=== PATIENT | female | born 1980 | race Caucasian/White ===

== ENCOUNTER 2016-08-23 08:04 | Inpatient (IN) | payer OTHER ==
[2016-08-23] VITALS (29 sets, daily range): BP systolic 14–164; BP diastolic 72–115
[~2016-08-23] VITALS: Ht 177.8 cm; Wt 77.2 kg
[~2016-08-23 08:04] MED LIST: ACETAMINOPHEN500 M3 PO; BACTRIM DS 8001 TAB PO; DEPO-PROVER150 MG/M1 IM; FOLIC ACID 1MG T1 MG PO; GABAPENTIN 600600 MG PO; GABAPENTIN600 MG PO; LEVAQUIN500 MG PO; METRONIDAZOLE500 M1 PO; OXYCODONE HYDROC5 MG PO; Oxycodone5 MG NG; PANTOPRAZOLE SO40 M1 PO; PHENERGAN25 M3 PO; POTASSIUM CHLO10 ME3 PO; POTASSIUM CHLO20 ME2 PO; PREDNISONE 20MG20 MG PO; PROTONIX40 MG PO; TORADOL10 M2 PO; TRAMADOL50 M1 PO; ZOFRAN4 MG PO
[2016-08-23] MEDS ORDERED: PHENERGAN25 M3 PO (08:13)
[2016-08-23] MEDS ORDERED: TRAMADOL 50MG T50 M1 PO (08:13)
--- NOTE | 2016-08-23 08:51 | Emergency Room Report ---
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 N Clinical Suspician of Infection? N Mental Status: 1 - Regular (Normal Baseline) Sepsis Risk:Possible Sepsis Risk Have you (or family members/close friends) recently traveled outside the [place]? N If Yes, where/when: Have you had exposure to infectious disease within the past month? N TB? Other? Specify: States has been vomiting all week. Has not eaten in the last two days. Had "pressure in my throat" last night then this morning "felt a pop" in her chest and started vomiting bright red blood. No diarrhea. No urinary sx. Menses irregular as on Depo. No report of fever. ALLERGIES Coded Allergies: Penicillins (08/22/16) Home Medications Active Scripts Pantoprazole Sodium (Protonix) 40 MG PO QHS #30 Ref 3 Prov: 07/30/15 ONDANSETRON HCL (Zofran 4MG Tab) 4 MG PO Q6HP PRN NAUSEA AND VOMITING #20 TAB Ref 5 Prov: 07/30/15 Reported Medications Gabapentin (Gabapentin 600MG) 600 MG PO QID POTASSIUM CHL (Potassium Chloride) 40 MEQ PO BID Medroxyprogesterone Acetate (Depo-Provera) 150 MG IM Q3 MONTHS TRAMADOL HCL (Tramadol) 50 MG PO PRN PRN PAIN PROMETHAZINE HCL (Phenergan 25MG Tab (Geq)) 25 MG PO Q6HP PRN N/V #10 History Medical History General CAD? No Angina: No AK: No Hypertension? Yes Hyperlipidemia? Yes CHF? No DVT? No PE? No COPD? No Asthma? No Anemia? No GERD? No Gastric ulcers? No GI Bleed? No Hernia? No Thyroid Problems? No Hypothyroidism? No CVA? No Seizures? No Diabetes? No Insulin Dependent: No Insulin Pump: No Home FSBS? No Renal Insuffiency? No End Stage Renal Disease? No UTI? No Stones? No BPH? No GB Disease: Yes Nephritic Syndrome? No Asplenia? No Hepatitis? Yes Sickle Cell Disease? No Arthritis? No Migraines? Yes Cataracts? No Glaucoma? No MRSA? No HIV? No TB? No Anxiety? No Depression? No Cancer? No More? 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 Gastrointestinal see HPI Physical Exam Vital Signs Vital Signs Date Time Temp Pulse Resp B/P Pulse O2 O2 Flow FiO2 Ox Delivery Rate 08/23 1101 98.0 96 20 178/98 99 08/23 1020 98.0 94 20 189/92 98 08/23 0932 98.1 93 20 138/105 98 08/23 0929 22 08/23 0851 88 20 157/118 95 08/23 0807 97.9 112 20 149/115 99 General Appearance mild distress Eye Exam - bilateral eye normal exam, bilateral eye PERRL Neck normal inspection, full range of motion Respiratory Status Yes: trachea midline, chest symmetrical, non tender chest. No: respiratory distress, tender on palpation, use of accessory muscles, pain on inspiration, pain on expiration, productive cough, non productive cough. Lung Sounds bilateral: normal breath sounds, lungs clear. Cardiovascular normal exam, regular rate/rhythm, no peripheral edema, no JVD, no murmur, no rub Gastrointestinal normal bowel sounds, normal exam, soft, no organomegaly, no guarding, no rebound Extremities normal range of motion Neurologic alert, normal exam Glascow Coma Scale Glascow Coma Scale Response Value EYE response: 4 Spontaneously 4 MOTOR response: 6 OBEYS 6 VERBAL response: 5 Oriented & Converses 5 Total 15 Skin intact, pallor Medical Decision Making LABS/Meds/Orders Pt receiving controlled substance in ED? Yes Song was queried for this patient? No Reason not queried - emergent pt cond=no time Results/Orders Laboratory Tests 08/23/16 1043: Urine Color MIGUEL, Urine Appearance CLOUDY, Urine pH 6.5, Ur Specific [place] 1.025, Urine Protein 1+ H, Urine Ketones TRACE H, Urine Blood NEGATIVE, Urine Nitrate POSITIVE H, Urine Bilirubin 1+ H, Urine Urobilinogen 4.0, Ur Leukocyte Esterase TRACE H, Urine RBC OCC, Urine WBC 10-20, Ur Squamous Epith Cells 10-20 , Urine Renal Cells OCC, Urine Bacteria 4+, Urine Mucus 2+, Urine Glucose NEGATIVE 08/23/16 0920: MCH 45.8 *H 08/23/16 0920: Sodium 142, Potassium 2.8 *L, Chloride 100, Carbon Dioxide 31, BUN 11, Creatinine 0.5 L, Estimated Creat Clear 178, Estimated GFR (MDRD) 140, Glucose 100, Calcium 8.4 L, Total Bilirubin 2.1 H, AST 85 H, ALT 21, Alkaline Phosphatase 112, Total Protein 6.3 L, Albumin 2.9 L, Globulin 3.4 H, Albumin/ Globulin Ratio 0.9 L, PT 12.0 H, INR 1.12 H, APTT 25.2, WBC 5.6, RBC 1.99 L, Hgb 9.1 L, Hct 27.0 L, MCV 135.8 H, RDW 16.8, Plt Count 247, MPV 9.2, Gran % 75.9, Gran # 4.3, Lymphocytes % 20.4, Monocytes % 3.2, Eosinophils % 0.4, Basophils % 0.1, Lymphocytes # 1.2, Monocytes # 0.2, Eosinophils # 0.0, Basophils # 0.0, PUBS MCHC 33.9, Antibody Screen NEGATIVE, Miscellaneous Test POSITIVE Current Medication Orders Sig/Jan Start time Last Medication Dose Route Stop Time Status Admin Iopamidol 75 ML ONCE ONE 08/23 1115 DC 08/23 IV 08/23 1116 1102 Sodium Chloride 10 ML PRN PRN 08/23 1115 AC 08/23 IV 08/23 1231 1102 Potassium Chloride/ 100 ML ONCE ONE 08/23 1045 AC 08/23 Water IV 08/23 1244 1138 Lactated Ringer's 1,000 ML .Q1H1M 08/23 1000 DC 08/23 IV 08/23 1100 1138 Sodium Chloride 10 ML PRN PRN 08/23 1000 AC IV 08/24 0954 Pantoprazole Sodium 0 .STK-MED ONE 08/23 0928 DC IV Ondansetron HCl 0 .STK-MED ONE 08/23 0927 DC .ROUTE Sodium Chloride 1,000 ML .STK-MED ONE 08/23 0927 DC IV Morphine Sulfate 0 .STK-MED ONE 08/23 09 DC .ROUTE Morphine Sulfate 4 MG ONCE ONE 08/23 0845 DC 08/23 IV 08/23 0846 0929 Ondansetron HCl 4 MG ONCE ONE 08/23 0845 DC 08/23 IV 08/23 0846 0929 Pantoprazole Sodium 40 MG ONCE ONE 08/23 0845 DC 08/23 IV 08/23 0846 0929 Sodium Chloride 10 ML PRN PRN 08/23 0845 AC IV 08/24 0844 Sodium Chloride 1,000 ML .Q4H 08/23 0845 AC 08/23 IV 08/23 1244 0928 Sodium Chloride 10 ML PRN PRN 08/23 0845 AC IV 08/24 0844 Sodium Chloride 10 ML ONCE ONE 08/23 0845 DC 08/23 IV 08/23 0846 1139 Orders Procedure Date/time Status DIET-NOTHING BY MOUTH 08/23 L Complete Decision to admit 08/23 1121 Active CULTURE, URINE 08/[address] CHEST SCAN REQ 08/[address] ABD REQUEST 08/23 1012 Complete ELECTROCARDIOGRAM REQUEST 08/23 0955 Active IV SALINE LOCK 08/23 0846 Active URINALYSIS/COMPLETE 08/23 0846 Complete TYPE AND SCREEN 08/23 0846 Complete PARTIAL THROMBOPLASTIN TIME 08/23 0846 Complete PROTHROMBIN TIME 08/23 0846 Complete URINE 08/23 0846 Complete CBC WITH AUTO DIFF 08/23 0846 Complete CHEM 12 PROFILE 08/23 0846 Complete 12 LEAD EKG-BESSON (INITIAL) 08/[address] CHEST W/ CONTRAST 08/[address] ABD & PELVIS W/ CONTRAST 08/23 UNK Active CM/EKG CM/EKG EKG rate (79), NSR, rhythm, no evid. of ischemic chgs, no ectopy, normal QRS, normal VA, normal EKG (T w flattening/hypokalemia), somewhat prolonged QTc 488 XRAY/CT/US XRAY/CT/US XR interpretation by reviewed by me, discussed w/radiologist Xray Results normal/NAD, no fracture seen, no infiltrates, normal heart size, normal lung inflation frank (no air noted/no tear/no PTX) CT abdomen, chest CT interpretation by reviewed by me, discussed w/radiologist Time results known: 1150 CT Results colonic thickening; no free air; enlarged liver per d/w Dr. Wells Consult MD Physician Consult 1 Consult/PCP Dr. Schmitt requesting surgery consult Time Called 1008 Reason Pt. Condition, Admission Physician Consult 2 Consult/PCP Dr. Granados requesting KCl IV; plans EGD later in day. Ok to admit to PCP. Time Called 1014 Reason Pt. Condition, Surgical eval/care Physician Consult 3 Time Called [address] Schmitt paged regarding definitive admission with consult to surgery/Dr. Granados now done. Still awaiting test result and CT scan. Departure Departure Time of Disposition 1122 Disposition Still a Patient Clinical Impression Primary Impression: Hematemesis Qualifiers: Nausea presence: with nausea Qualified Code: K92.0 - Hematemesis Secondary Impressions: Hypokalemia Condition STABLE Referrals Michel HUNT,Al Welch (Family) ED Critical Care Critical Care Yes Time spent < 30 min Vital system(s) involved: Circulatory Failure (hypokalemia; UGI bleeding) I was present at bedside for Coordinating pt's care, Interpreting EKGs/Strips , During my initial exam, Reviewing lab results, Reviewing old records, Discussing pt condition, For re-examinations, Examining radiographs, multiple consults at 1150
[2016-08-23 09:42] LABS: LYMPH # 1.2 K/mm3 (0.7-4.5); LYMPH % 20.4 % (10-50.0)
[2016-08-23 09:48] LABS: HEMOGLOBIN 9.1 g/dL (12.2-16.2)
--- NOTE | 2016-08-23 10:08 | RADIOLOGY REPORT PS360 ---
CHEST-PORTABLE ORDERING PHYSICIAN : Amelie Alberts MD PATIENT AGE: 36 years GENDER: Female INDICATION: hematemesis Chest pain. [place] something pop TECHNIQUE: AP portable upright chest COMPARISON: April 24, 2016 chest x-ray FINDINGS Lungs clear. No active disease. Heart johnny and mediastinal structures satisfactory. Heart upper normal in size. Normal pulmonary vascularity. No obvious rib lesions or fractures. No pneumothorax. No mediastinal air evident on this limited AP portable chest. No pleural effusion. IMPRESSION: Nothing definite acute No active disease in the chest.
[2016-08-23 10:09] LABS: ABO BLOOD TYPE A; RH BLOOD TYPE POSITIVE
[2016-08-23 11:05] LABS: URINE BLOOD NEGATIVE (NEG)
[2016-08-23 11:07] LABS: URINE BILIRUBIN - DIPSTICK 1+ (NEG); URINE RENAL CELLS OCC #/HPF
--- NOTE | 2016-08-23 11:57 | RADIOLOGY REPORT PS360 ---
CT ABD PELVIS W/ CONTRAST ORDERING PHYSICIAN : Amelie Alberts MD PATIENT AGE: 36 years GENDER: Female INDICATION: HEMATEMESISSevere throat esophageal chest pain down to abdomen. TECHNIQUE: Helical CT scanning performed the abdomen following 75 cc Isovue-370. COMPARISON: April 25, 2016 CT abdomen FINDINGS GI TRACT: Large bowel. . Diffuse fatty wall thickening throughout the colon most evident at the right and transverse colon. Nonspecific observation but can be seen with chronic inflammation, inflammatory bowel disease. This appearance has shown progression since April 25, 2016 CT abdomen. Is also suggestion of very subtle hazy appearance in pericolic fat surrounding the colon particularly at the right colon and possibly left colon. Cannot exclude a underlying mild diffuse colitis currently.. Terminal ileum. Generous caliber with air-fluid level but overall appears satisfactory with no wall thickening no inflammation at terminal ileum. Also Appendix is normal. Small bowel normal caliber with a few small air-fluid levels. Moderate fluid appears normal to upper normal. PELVIS. Uterus modest/ normal size with no adnexal masses. Urinary bladder diffuse wall thickening may reflect its contracted state but cannot exclude interstitial suspect cystitis. Warrants correlation with urinalysis. Liver. enlarged liver. On left lobe extends far lateral anterior to the spleen. The right lobe measures 24 cm length. Diffuse fatty changes in liver. Gallbladder surgically removed. No biliary ductal dilatation. Pancreas appears satisfactory. Adrenals unremarkable. Kidneys satisfactory. No free fluid. No free air in abdomen. Spleen appears normal size. Portal vein upper normal diameter measuring ~14 mm IMPRESSION 1. Hepatomegaly. Diffuse fatty changes liver Portal vein upper normal size measuring measuring just over [address] Spleen normal size 2. Cholecystectomy. No biliary ductal dilatation. 3. Fat density wall thickening throughout the entire colon most evident at right & transverse colon. Subtle pericolic inflammation right & left colon. Note comments in text. Could reflect chronic inflammatory bowel process, however appearance suspect for possible mild colitis currently.- correlation clinically required 4.. Diffuse wall thickening urinary bladder also noted. In part reflect contracted state but suspect for cystitis
--- NOTE | 2016-08-23 13:47 | CONSULT NOTE ---
Standard Demographics Patient Demo Date of Consultation: 08/23/16 Referring Provider: Francis Schmitt MD Reason for Consultation: hematemesis PRIMARY DIAGNOSIS: GI Bleed Allergies: Coded Allergies: Penicillins (08/22/16) History of Present Illness Chief Complaint: Hematemesis History of Present Illness: This is a 36-year-old female seen in consultation from Dr. Schmitt for evaluation regarding hematemesis. She has had fairly persistent nausea and intermittent emesis over the past "week or so". Earlier today she felt a "pop" during an episode of emesis and this was quickly followed by hematemesis. In general she just "feels bad". No melena as of yet. No loss of consciousness. Past Medical History Reports: hypertension. Surgical History Previous Surgery?Y UMBILICAL HERNIA ORIF LEFT ARM LAP CONSUELO D & C BIOPSY 1999 Allergies Coded Allergies: Penicillins (08/22/16) Medications: Active Scripts Pantoprazole Sodium (Protonix) 40 MG PO QHS #30 Ref 3 Prov: 07/30/15 ONDANSETRON HCL (Zofran 4MG Tab) 4 MG PO Q6HP PRN NAUSEA AND VOMITING #20 TAB Ref 5 Prov: 07/30/15 Reported Medications Gabapentin (Gabapentin 600MG) 600 MG PO QID POTASSIUM CHL (Potassium Chloride) 40 MEQ PO BID Medroxyprogesterone Acetate (Depo-Provera) 150 MG IM Q3 MONTHS TRAMADOL HCL (Tramadol) 50 MG PO PRN PRN PAIN PROMETHAZINE HCL (Phenergan 25MG Tab (Geq)) 25 MG PO Q6HP PRN N/V #10 Family history Postive for: HTN. Smoking Hx Tobacco: No Smoker: Former Smoker Type: Cigarettes Packs/day: N/A Are you/the child exposed to second-hand smoke: No Alcohol Alcohol: Yes How much do you drink occasional- few times month For how long 3 years When was your last drink new yrs Hx of Drug Use Drug Use? No Review of Systems Constitutional No: chills. Skin No: bruising. Immune/allergy No: anaphalaxis. Eyes No: discharge. ENT No: nose bleed. Respiratory No: pneumonia. Cardiovascular No: palpitations. GI Positive for: hematemeis, nausea, vomitting. No: hematochezia, melena. (female) No: hematuria. Musculoskeletal Positive for: myalgias. Heme No: petechia. Endocrine No: polydipsia. Neurological No: change in LOC. Psychiatric No: anxious. Physical Exam VS/I&O Vital Signs Date Time Temp Pulse Resp B/P Pulse O2 O2 Flow FiO2 Ox Delivery Rate 08/23 1341 20 08/23 1253 80 08/23 1253 97.6 80 24 164/88 08/23 1253 100 ROOM AIR 08/23 1253 97.6 80 24 164/88 100 ROOM AIR 08/23 1235 89 20 145/88 99 08/23 1214 101 20 138/88 99 08/23 1143 98.6 92 20 174/88 99 08/23 1138 20 08/23 1101 98.0 96 20 178/98 99 08/23 1020 98.0 94 20 189/92 98 08/23 0932 98.1 93 20 138/105 98 08/23 0929 22 08/23 0851 88 20 157/118 95 08/23 0807 97.9 112 20 149/115 99 Exam General appearance no acute distress Neck full ROM Respiratory no distress Cardiovascular regular rate and rhythm Abdomen soft Plan Plan: Impression: Hematemesis/upper gastrointestinal bleed Plan: Esophagogastroduodenoscopy-I have discussed the risks and benefits and she agrees to proceed at 1346
--- NOTE | 2016-08-23 14:29 | Operative Note ---
Surgeon/Diagnoses Surgeon/Room Attendants(s) Date of procedure: 08/23/16 Surgeon: MD Kane Kc Diagnoses Pre-op diagnosis: Hematemesis Post-op diagnosis Hematemesis Esophagitis Mucosal tears ("Sanjuana-Altman") of mid and distal esophagus Distal gastritis Shallow antral ulceration with no active bleeding Procedure Procedure Procedure: Esophagogastroduodenoscopy with biopsy Indications: AKBAR HUNTER is a 36 year-old Female with a history of recent nausea and vomiting followed by an episode of hematemesis and a "pop sensation" earlier today. Findings: Fairly significant patchy erosive esophagitis distally Shallow linear ulcerations/tears ("Sanjuana-Altman") of mid and distal esophagus No active bleeding No blood in gastric lumen Distal gastritis Shallow antral ulceration with no active bleeding Procedure Description: After informed consent was obtained, the patient was taken to the endoscopy suite. Monitored anesthesia care ensued after she was transferred to the LEFT lateral decubitus position. The gastroscope was advanced. Erosive inflammatory changes were noted of the mid and distal esophagus. Shallow linear ulcerations/ tears of the mucosa were noted of the mid and distal esophagus. No active bleeding was seen. The stomach was entered. No blood was noted within the stomach. Inflammation distally was noted in this fairly small shallow ulceration of the antrum was noted. No active bleeding was seen. Biopsies were obtained. The pylorus was intubated. The duodenal mucosa appeared relatively normal. The gastroscope was carefully removed and the patient was transferred to recovery. EBL (ml): 1 Anesthesia: Monitored anesthesia care Complications: No immediate Specimens: Biopsy of gastric antrum (ulcer) Disposition Disposition: Stable to recovery from where she will be transferred back to the floor. at 0256
[2016-08-23 15:42] LABS: LYMPH # 1.9 K/mm3 (0.7-4.5); LYMPH % 35.7 % (10-50.0)
[2016-08-23 16:27] LABS: HEMOGLOBIN 7.2 g/dL (12.2-16.2)
--- NOTE | 2016-08-23 19:06 | RADIOLOGY REPORT PS360 ---
CT CHEST W/ CONTRAST ORDERING PHYSICIAN : Amelie Alberts MD PATIENT AGE: 36 years GENDER: Female INDICATION: HEMATEMESIS Severe throat and esophagus chest pain down into abdomen. TECHNIQUE: Helical CT scanning performed through the chest following 75 cc Isovue-370. Sagittal coronal reconstruction CT workstation. COMPARISON: None FINDINGS Helical CT scanning performed the chest. Lungs are clear with no focal pneumonia. No pleural effusion. Mediastinum. Calcified right paratracheal nodes reflecting old granulomatous disease. Node measuring up to nodes measuring less than 1 cm generous azygos vein. Esophagus wall appears upper normal in thickness throughout sagittal image 47; & particularly at its midportion,. Clinical correlation required. Possible esophagitis. Cannot exclude esophageal injury. No evident nor obvious esophageal varices. A slightly generous azygos vein is noted No air nor fluid is seen adjacent to the esophagus , to further support esophageal tear. However there are 2 small dot of air seen superior right mediastinum. The first seen on Axial image 27 right superior/anterior mediastinum which actually suspect more likely resides within a vein, as seen on coronal image 28. There is a 2nd smaller.Of air at the posterior aspect right sternoclavicular joint also likely within veins. Even smaller tiny dot of air within the anterior margin brachiocephalic vein on axial image 25. Heart normal upper normal size no pericardial effusion. No pleural effusion. The thyroid is upper normal in size at the base the neck. -----IMPRESSION: 1. Lungs clear no active disease . 2.. There are 2 Small dots of air anterior right superior mediastinum. Curious but most likely benign feature-Most likely air within the small vein . But may require follow-up if symptoms progress. No air or fluid seen otherwise about the esophagus to suggest esophageal rupture or tear. 3. Wall of esophagus appears upper normal thickness, particularly in its midportion. appearance May reflect esophagitis.. . Cannot exclude area of esophageal injury. Suggest EGD [facility] report , subsequent to my review and discussion with Dr. Alberts, had similar conclusion.
[2016-08-23 19:16] LABS: ANTIHUMAN GLOB CROSSMATCH COMPAT
[2016-08-23 19:16] LABS: ABO BLOOD TYPE A; ANTIHUMAN GLOB CROSSMATCH COMPAT; RH BLOOD TYPE POSITIVE
[2016-08-24] VITALS (9 sets, daily range): BP systolic 127–147; BP diastolic 89–111
[2016-08-24 05:57] LABS: LYMPH # 1.8 K/mm3 (0.7-4.5); LYMPH % 36.6 % (10-50.0)
--- NOTE | 2016-08-24 08:38 | HISTORY AND PHYSICAL REPORT ---
Demographics: Admit date: 08/23/16 Chief complaint: vomiting PRIMARY DIAGNOSIS: GI Bleed Allergies: Coded Allergies: Penicillins (08/22/16) History of present illness: History of present illness: this wf with vomiting and dev sev chest pain and had hematemesis and with progressive pain and weakness presented to the ed with upper gi bleed- pt admitted and will have surg consult for possible egd Past medical history: Family HX Family Hx Insignificant Yes Immunization HX DT/Tetanus 1-4 Years Ago Flu 2014-16FSN Pneumonia Refuses TB Test in last year Yes Result Negative General CAD? No Angina: No [place]: No Hypertension? Yes Hyperlipidemia? Yes CHF? No DVT? No PE? No COPD? No Asthma? No Anemia? No GERD? No Gastric ulcers? No GI Bleed? No Hernia? No Thyroid Problems? No Hypothyroidism? No CVA? No Seizures? No Diabetes? No Insulin Dependent: No Insulin Pump: No Home FSBS? No Renal Insuffiency? No UTI? No Stones? No BPH? No GB Disease: Yes Nephritic Syndrome? No Asplenia? No Hepatitis? Yes Sickle Cell Disease? No Arthritis? No Migraines? Yes Cataracts? No Glaucoma? No MRSA? No HIV? No TB? No Anxiety? No Depression? No Cancer? No More? No Additional hx: NEUROPATHY Past Surgical HX Previous Surgery?Y UMBILICAL HERNIA ORIF LEFT ARM LAP CONSUELO D & C BIOPSY 1999 Current home meds: Active Scripts Pantoprazole Sodium (Protonix) 40 MG PO QHS #30 Ref 3 Prov: 07/30/15 ONDANSETRON HCL (Zofran 4MG Tab) 4 MG PO Q6HP PRN NAUSEA AND VOMITING #20 TAB Ref 5 Prov: 07/30/15 Reported Medications Gabapentin (Gabapentin 600MG) 600 MG PO QID POTASSIUM CHL (Potassium Chloride) 40 MEQ PO BID Medroxyprogesterone Acetate (Depo-Provera) 150 MG IM Q3 MONTHS TRAMADOL HCL (Tramadol) 50 MG PO PRN PRN PAIN PROMETHAZINE HCL (Phenergan 25MG Tab (Geq)) 25 MG PO Q6HP PRN N/V #10 Social Hx: Smoking HX Tobacco Yes Type CIGARETTES Packs/day N/A Are you/the child exposed to second-hand smoke: No Alcohol Alcohol: Yes How much do you drink occasional- few times month For how long 3 years When was your last drink new yrs Hx of Drug Use Drug Use? No Patien't marital status is Patient's support system is good Review of systems: Constitutional No: fever. Eyes No: drainage. Ears, Nose, Mouth, Throat No ear discharge, No epistaxis, No missing teeth Respiratory No: cough, shortness of breath, wheezing. Cardiovascular No chest pain, No palpitations, No syncope Gastrointestinal/Abdominal see HPI, abdominal pain, No diarrhea, poor appetite, poor fluid intake, vomiting Genitourinary No: dysuria, frequency, hesitancy, hematuria. Musculoskeletal No: back pain, joint pain, joint swelling, neck pain. Skin No: rash. Neurological Yes: see HPI, weakness. No: headache, numbness, parasthesia. Psychiatric No: depressed. Exam: Lab data for last 24 hours: Laboratory Tests 08/24/16 0530: Sodium 141, Potassium 2.6 *L, Chloride 104, Carbon Dioxide 28, BUN 9, Creatinine 0.4 L, Estimated Creat Clear 223 H, Estimated GFR (MDRD) 181, Glucose 80, Calcium 8.1 L, WBC 4.8, RBC 2.50 L, Hgb 10.0 L, Hct 29.8 L, MCV 119.2 H, RDW 25.4 *H, Plt Count 161, MPV 9.5, Gran % 58.5, Gran # 2.8, Lymphocytes % 36.6 , Monocytes % 3.9, Eosinophils % 0.8, Basophils % 0.3, Lymphocytes # 1.8, Monocytes # 0.2, Eosinophils # 0.0, Basophils # 0.0, PUBS MCHC 33.2, MCH 39.6 H 08/23/16 2243: Misc Test Units BLOOD UNIT RELEASE 08/23/16 2035: Misc Test Units BLOOD UNIT RELEASE 08/23/16 1650: Antibody Screen NEGATIVE, Miscellaneous Test POSITIVE 08/23/16 1535: WBC 5.3, RBC 1.61 L, Hgb 7.2 *L, Hct 22.1 *L, MCV 137.3 H, RDW 16.7, Plt Count 175, MPV 9.4, Gran % 60.1, Gran # 3.2, Lymphocytes % 35.7, Monocytes % 3.3, Eosinophils % 0.8, Basophils % 0.1, Lymphocytes # 1.9, Monocytes # 0.2, Eosinophils # 0.0, Basophils # 0.0, PUBS MCHC 32.4, MCH 44.5 *H 08/23/16 1330: Sodium 142, Potassium 3.1 L, Chloride 101, Carbon Dioxide 30, BUN 9, Creatinine 0.4 L, Estimated Creat Clear 223 H, Estimated GFR (MDRD) 181, Glucose 85, Calcium 8.1 L 08/23/16 1043: Urine Color MIGUEL, Urine Appearance CLOUDY, Urine pH 6.5, Ur Specific [place] 1.025, Urine Protein 1+ H, Urine Ketones TRACE H, Urine Blood NEGATIVE, Urine Nitrate POSITIVE H, Urine Bilirubin 1+ H, Urine Urobilinogen 4.0, Ur Leukocyte Esterase TRACE H, Urine RBC OCC, Urine WBC 10-20, Ur Squamous Epith Cells 10-20 , Urine Renal Cells OCC, Urine Bacteria 4+, Urine Mucus 2+, Urine Glucose NEGATIVE 08/23/16 0920: MCH 45.8 *H 08/23/16 0920: Sodium 142, Potassium 2.8 *L, Chloride 100, Carbon Dioxide 31, BUN 11, Creatinine 0.5 L, Estimated Creat Clear 178, Estimated GFR (MDRD) 140, Glucose 100, Calcium 8.4 L, Total Bilirubin 2.1 H, AST 85 H, ALT 21, Alkaline Phosphatase 112, Total Protein 6.3 L, Albumin 2.9 L, Globulin 3.4 H, Albumin/ Globulin Ratio 0.9 L, PT 12.0 H, INR 1.12 H, APTT 25.2, WBC 5.6, RBC 1.99 L, Hgb 9.1 L, Hct 27.0 L, MCV 135.8 H, RDW 16.8, Plt Count 247, MPV 9.2, Gran % 75.9, Gran # 4.3, Lymphocytes % 20.4, Monocytes % 3.2, Eosinophils % 0.4, Basophils % 0.1, Lymphocytes # 1.2, Monocytes # 0.2, Eosinophils # 0.0, Basophils # 0.0, PUBS MCHC 33.9, Antibody Screen NEGATIVE, Miscellaneous Test POSITIVE Microbiology 08/23 1042 URINE CC: Urine Culture - RECD Admission vital signs: 1ST Vital Signs Result Date Time Pulse Ox 99 08/23 0807 B/P 149/115 08/23 0807 Temp 97.9 08/23 0807 Pulse 112 08/23 0807 Resp 20 08/23 0807 O2 Delivery ROOM AIR 08/23 1253 Exam General appearance: alert, active Eyes: PERRLA ENT: dry mucous membranes Neck: no JVD Cardiovascular: regular rate & rhythm, no murmur Respiratory: no respiratory distress, diminished breath sounds ABD: soft Genitourinary: no hematuria Extremities: moves all Musculoskeletal: equal muscle strength Skin: dry, intact Neuro: alert, sizer machine II-XII nml as tested Plan: Problem List 1. Hematemesis 2. UGI bleed 3. Hypokalemia 4. HTN (hypertension) Plan: will continue with surg and gi treatment for upper bleed at 0838
--- NOTE | 2016-08-24 11:31 | RADIOLOGY REPORT PS360 ---
CHEST-PORTABLE COMPARISON: Portable upright chest 08/23/2016 HISTORY: Shortness of breath TECHNIQUE: Portable upright chest FINDINGS: This is a slightly poor inspiration however lung cardenas are clear of infiltrate. There is a possible slight interval increase in overall cardiac size from yesterday's film but this could be due to the slightly poor inspiration. Overall vascularity appears normal and is no pleural fluid. IMPRESSION: Slightly poor inspiration, no definite acute chest pathology noted
[2016-08-25 07:00] VITALS: BP 158/107
[2016-08-25 07:58] VITALS: BP 141/102
--- NOTE | 2016-08-25 08:29 | ACUTE CARE PROGRESS NOTE (QUA) ---
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 Hematemesis 2. UGI bleed 3. Hypokalemia 4. HTN (hypertension) Patient condition Improving Plan: continue current care, make medication changes This inpt stay is expected to cross 2 MNs from start of care Yes Comments: slowly doing better at 0860
--- NOTE | 2016-08-25 08:29 | ACUTE CARE PROGRESS NOTE (QUA) ---
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 Hematemesis 2. UGI bleed 3. Hypokalemia 4. HTN (hypertension) Patient condition Improving Plan: continue current care, make medication changes This inpt stay is expected to cross 2 MNs from start of care Yes Comments: slowly doing better at 0888
[2016-08-25 08:34] LABS: HEMOGLOBIN 9.8 g/dL (12.2-16.2); LYMPH # 1.2 K/mm3 (0.7-4.5); LYMPH % 24.8 % (10-50.0)
[2016-08-25 14:38] VITALS: BP 150/105
[2016-08-25 20:05] VITALS: BP 147/110
[2016-08-25 20:12] VITALS: BP 152/104
[2016-08-25 20:25] VITALS: BP 152/104
[2016-08-26] VITALS (30 sets, daily range): BP systolic 129–163; BP diastolic 75–111
--- NOTE | 2016-08-26 09:19 | PHARMACY CLINIC NOTE ---
Patient Demographics Patient Demographics Admission date: 08/23/16 Date: 08/26/16 Time: 0918 Allergies Coded Allergies: Penicillins (08/22/16) HEIGHT- FT: 5 IN: 10.00 K.196 VTE General Information Disclaimer The following section includes nursing documentation that has been pulled in for pharmacy review. Patient's VTE score: 0 Patient's VTE Risk: VERY LOW RISK Clinical trial participant? No VTE prophylaxis [id number] VTE prophylaxis ordered? Yes Type of prophylaxis/treatment: JUSTINA at 0918
--- NOTE | 2016-08-26 09:46 | SURGEON PROGRESS NOTE ---
Subjective data Subjective data: Feels "a bit better this morning". Objective data Vitals,I&O,and Labs: Vital signs, intake and output,and available lab data for the last 24 hours is as noted below. Vital Signs Date Time Temp Pulse Resp B/P Pulse O2 O2 Flow FiO2 Ox Delivery Rate 08/26 0758 98.2 78 18 162/98 98 ROOM AIR 08/26 0711 18 08/26 0410 98.6 83 16 138/95 96 ROOM AIR 08/26 0026 98.8 74 18 145/108 98 ROOM AIR 08/26 0015 17 08/25 2024 98.5 75 17 152/104 99 08/25 202 17 08/25 2011 152/104 08/25 2005 98.5 75 18 147/110 99 ROOM AIR 08/25 1609 17 08/25 1438 98.9 69 150/105 99 08/25 1156 17 08/25 1500 08/25 2300 08/26 0700 Intake Total 900 1356 1622 Output Total Balance 900 1356 1622 Intake, IV 1356 1262 Intake, Oral 900 360 Laboratory Tests Test Result Date Time Chemistry Sodium (mmoL/L) 138 08/26 0645 Potassium (mmoL/L) 3.3 08/26 0645 Chloride (mmoL/L) 103 08/26 0645 Carbon Dioxide (mmoL/L) 27 08/26 0645 BUN (mg/dL) 11 08/26 0645 Creatinine (mg/dL) 0.6 08/26 0645 Estimated Creat Clear (ML/MIN) 149 08/26 0645 Estimated GFR (MDRD) (ML/MIN) 113 08/26 0645 Glucose (mg/dL) 83 08/26 0645 POC Glucose (mg/dl) 80 08/25 2045 Calcium (mg/dL) 8.1 08/26 0645 Total Bilirubin (mg/dL) 1.9 08/26 0645 AST (U/L) 65 08/26 0645 ALT (U/L) 17 08/26 0645 Alkaline Phosphatase (U/L) 93 08/26 0645 Total Protein (gm/dL) 5.3 08/26 06 Albumin (gm/dL) 2.3 08/26 0645 Globulin (gm/dL) 3.0 08/26 06 Albumin/Globulin Ratio 0.8 08/26 06 Coagulation PT (SECONDS) 12.0 08/23 919 INR 1.12 08/23 919 APTT (SECONDS) 25.2 08/23 919 Hematology WBC (K/MM3) 4.9 08/25 729 RBC (M/mm3) 2.39 08/25 729 Hgb (g/dL) 9.8 08/25 729 Hct (%) 28.8 08/25 729 MCV (fl) 120.9 08/25 729 RDW (%) 24.8 08/25 729 Plt Count (K/mm3) 154 08/25 729 MPV (fl) 9.5 08/25 729 Gran % (%) 68.8 08/25 729 Gran # (K/mm3) 3.4 08/25 729 Lymphocytes % (%) 24.8 08/25 729 Monocytes % (%) 5.4 08/25 729 Eosinophils % (%) 0.5 08/25 729 Basophils % (%) 0.5 08/25 729 Lymphocytes # (K/mm3) 1.2 08/25 729 Monocytes # (K/mm3) 0.3 08/25 729 Eosinophils # (K/mm3) 0.0 08/25 729 Basophils # (K/MM3) 0.0 08/25 729 PUBS MCHC (g/dl) 33.9 08/25 729 Immunology Antibody Screen NEGATIVE 08/23 1650 MCH (pg) 41.0 08/25 729 Miscellaneous Miscellaneous Test POSITIVE 08/23 1650 Misc Test Units BLOOD UNIT RELEASE 08/23 2243 Urines Urine Color MIGUEL 08/23 1043 Urine Appearance CLOUDY 08/23 1043 Urine pH 6.5 08/23 1043 Ur Specific [place] 1.025 08/23 1043 Urine Protein (mg/dL) 1+ 08/23 1043 Urine Ketones (mg/dL) TRACE 08/23 1043 Urine Blood NEGATIVE 08/23 1043 Urine Nitrate POSITIVE 08/23 1043 Urine Bilirubin 1+ 08/23 1043 Urine Urobilinogen (E.U./dL) 4.0 08/23 1043 Ur Leukocyte Esterase TRACE 08/23 1043 Urine RBC (rbc/hpf) OCC 08/23 1043 Urine WBC (wbc/hpf) 10-20 08/23 1043 Ur Squamous Epith Cells (#/hpf) 10-20 08/23 1043 Urine Renal Cells (#/HPF) OCC 08/23 1043 Urine Bacteria 4+ 08/23 1043 Urine Mucus 2+ 08/23 1043 Urine Glucose NEGATIVE 08/23 1043 Assessment findings Assessment Exam General appearance: no acute distress Cardiovascular: regular rate & rhythm Respiratory: no respiratory distress ABD: soft Patient plan Diagnoses: 1) hematemesis secondary to distal esophageal injury (Sanjuana-Altman) - stable 2) enteritis with nausea and emesis - improved Plan: Advance diet Additional data: advance to full liquids (will not advance beyond fulls) at 0946
--- NOTE | 2016-08-26 13:18 | ACUTE CARE PROGRESS NOTE (QUA) ---
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 Hematemesis 2. UGI bleed 3. Hypokalemia 4. HTN (hypertension) Patient condition Improving Plan: make medication changes, order additional tests This inpt stay is expected to cross 2 MNs from start of care Yes Comments: will check echo sec to murmur and will treat bp at 1317
--- NOTE | 2016-08-26 13:18 | ACUTE CARE PROGRESS NOTE (QUA) ---
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 Hematemesis 2. UGI bleed 3. Hypokalemia 4. HTN (hypertension) Patient condition Improving Plan: make medication changes, order additional tests This inpt stay is expected to cross 2 MNs from start of care Yes Comments: will check echo sec to murmur and will treat bp at 1317
[2016-08-27] VITALS (9 sets, daily range): BP systolic 124–142; BP diastolic 82–98
--- NOTE | 2016-08-27 06:42 | SURGEON PROGRESS NOTE ---
Subjective data Subjective data: The patient is now sleeping after what the nurses describe as "a somewhat restless night". Objective data Vitals,I&O,and Labs: Vital signs, intake and output,and available lab data for the last 24 hours is as noted below. Vital Signs Date Time Temp Pulse Resp B/P Pulse O2 O2 Flow FiO2 Ox Delivery Rate 08/27 0436 98.1 74 18 124/86 98 ROOM AIR 08/27 0234 18 08/27 0225 98.5 74 18 131/98 96 ROOM AIR 08/27 0222 98.5 98 18 139/90 98 08/27 0220 98.4 75 18 142/93 98 ROOM AIR 08/27 0010 98.4 75 18 132/82 97 ROOM AIR 08/26 2227 18 08/26 2101 98.5 84 18 141/98 98 08/26 2048 98.5 84 18 141/98 98 08/26 2045 83 18 150/101 98 08/26 2043 98.7 86 18 134/98 98 08/26 1903 77 134/95 08/26 1827 71 163/101 08/26 1810 16 08/26 1717 76 145/105 08/26 1625 98.7 82 18 136/97 99 ROOM AIR 08/26 1620 77 148/105 08/26 1600 82 150/106 08/26 1555 86 148/103 08/26 1554 91 152/110 08/26 1541 152/75 08/26 1531 85 144/98 08/26 1510 89 135/96 08/26 1505 85 133/97 08/26 1500 86 132/96 08/26 1458 89 16 129/96 08/26 1436 86 145/95 08/26 1434 86 18 150/93 08/26 1432 88 18 136/85 08/26 1430 81 16 148/108 08/26 1427 82 18 152/111 08/26 1227 16 08/26 1221 74 16 151/110 100 ROOM AIR 08/26 1030 78 151/107 08/26 0930 148/106 08/26 0830 98.2 78 18 162/98 98 08/26 0758 98.2 78 18 162/98 98 ROOM AIR 08/26 0711 18 08/26 1500 08/26 2300 08/27 0700 Intake Total 300 1391 554 Output Total Balance 300 1391 554 Intake, IV 1151 314 Intake, Oral 300 240 240 Patient 77.196 kg 77.197 kg Weight Laboratory Tests Test Result Date Time Chemistry Sodium (mmoL/L) 138 08/26 06 Potassium (mmoL/L) 3.3 08/26 06 Chloride (mmoL/L) 103 08/26 644 Carbon Dioxide (mmoL/L) 27 08/26 06 BUN (mg/dL) 11 08/26 644 Creatinine (mg/dL) 0.6 08/26 644 Estimated Creat Clear (ML/MIN) 149 08/26 644 Estimated GFR (MDRD) (ML/MIN) 113 08/26 06 Glucose (mg/dL) 83 08/26 644 POC Glucose (mg/dl) 80 08/25 204 Calcium (mg/dL) 8.1 08/26 644 Total Bilirubin (mg/dL) 1.9 08/26 644 AST (U/L) 65 08/26 644 ALT (U/L) 17 08/26 644 Alkaline Phosphatase (U/L) 93 08/26 644 Total Protein (gm/dL) 5.3 08/26 644 Albumin (gm/dL) 2.3 08/26 644 Globulin (gm/dL) 3.0 08/26 644 Albumin/Globulin Ratio 0.8 08/26 644 Coagulation PT (SECONDS) 12.0 08/23 919 INR 1.12 08/23 919 APTT (SECONDS) 25.2 08/23 919 Hematology WBC (K/MM3) 4.9 08/25 729 RBC (M/mm3) 2.39 08/25 729 Hgb (g/dL) 9.8 08/25 729 Hct (%) 28.8 08/25 729 MCV (fl) 120.9 08/25 729 RDW (%) 24.8 08/25 729 Plt Count (K/mm3) 154 08/25 729 MPV (fl) 9.5 08/25 729 Gran % (%) 68.8 08/25 729 Gran # (K/mm3) 3.4 08/25 729 Lymphocytes % (%) 24.8 08/25 729 Monocytes % (%) 5.4 08/25 729 Eosinophils % (%) 0.5 08/25 729 Basophils % (%) 0.5 08/25 729 Lymphocytes # (K/mm3) 1.2 08/25 729 Monocytes # (K/mm3) 0.3 08/25 729 Eosinophils # (K/mm3) 0.0 08/25 729 Basophils # (K/MM3) 0.0 08/25 729 PUBS MCHC (g/dl) 33.9 08/25 729 Immunology Antibody Screen NEGATIVE 08/23 165 MCH (pg) 41.0 08/25 729 Miscellaneous Miscellaneous Test POSITIVE 08/23 1650 Misc Test Units BLOOD UNIT RELEASE 08/23 2243 Urines Urine Color MIGUEL 08/23 1043 Urine Appearance CLOUDY 08/23 1043 Urine pH 6.5 08/23 1043 Ur Specific [place] 1.025 08/23 1043 Urine Protein (mg/dL) 1+ 08/23 1043 Urine Ketones (mg/dL) TRACE 08/23 1043 Urine Blood NEGATIVE 08/23 1043 Urine Nitrate POSITIVE 08/23 1043 Urine Bilirubin 1+ 08/23 1043 Urine Urobilinogen (E.U./dL) 4.0 08/23 1043 Ur Leukocyte Esterase TRACE 08/23 1043 Urine RBC (rbc/hpf) OCC 08/23 1043 Urine WBC (wbc/hpf) 10-20 08/23 1043 Ur Squamous Epith Cells (#/hpf) 10-20 08/23 1043 Urine Renal Cells (#/HPF) OCC 08/23 1043 Urine Bacteria 4+ 08/23 1043 Urine Mucus 2+ 08/23 1043 Urine Glucose NEGATIVE 08/23 1043 Assessment findings Assessment Exam General appearance: no acute distress Cardiovascular: regular rate & rhythm Respiratory: no respiratory distress Patient plan Diagnoses: Upper gastrointestinal hemorrhage due to esophageal injury secondary to persistent emesis - currently stable. Plan: continue current management as per primary service at 0641
[2016-08-27 10:42] LABS: HEMOGLOBIN 9.9 g/dL (12.2-16.2); LYMPH # 1.3 K/mm3 (0.7-4.5); LYMPH % 31.8 % (10-50.0)
--- NOTE | 2016-08-27 12:54 | ACUTE CARE PROGRESS NOTE (QUA) ---
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 Hematemesis 2. UGI bleed 3. Hypokalemia 4. HTN (hypertension) Patient condition Improving Plan: initiate discharge plan This inpt stay is expected to cross 2 MNs from start of care Yes Comments: discussed with dr davis and will d/c at 1259
--- NOTE | 2016-08-27 12:54 | ACUTE CARE PROGRESS NOTE (QUA) ---
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 Hematemesis 2. UGI bleed 3. Hypokalemia 4. HTN (hypertension) Patient condition Improving Plan: initiate discharge plan This inpt stay is expected to cross 2 MNs from start of care Yes Comments: discussed with dr davis and will d/c at 1252
[2016-08-27] MEDS ORDERED: LEVAQUIN500 MG PO (12:58)
--- NOTE | 2016-08-27 13:02 | DISCHARGE SUMMARY STANDARD ---
Demographics Admit date: 08/23/16 Discharge date: 08/27/16 History of present illness History of present illness this wf with vomiting and dev sev chest pain and had hematemesis and with progressive pain and weakness presented to the ed with upper gi bleed- pt admitted and will have surg consult for possible egd Hospital Course Hospital Course: pt with flavio altman tear and required blood transfusion - pt with no fever and slowly improved with ivf and protonix an dwill be followed as op with no asa/ motrin Discharge diagnoses Problem List 1. Hematemesis 2. UGI bleed 3. Hypokalemia 4. HTN (hypertension) 5. Sanjuana-Altman tear Medications Medications: Discharge meds are as noted. Follow up Follow up in office in: 7 DAYS with: Ezekiel Schmitt MD Comment: will follow as op and plan a eval of esphagus in future at [id number]
== END 2016-08-27 13:30 | disposition home or self-care (01) | DRG 370 ==
LOC: ER 08:04 → ICU 11:22 → ER 11:22 → ICU 12:51
PROVIDERS: Emergency Medicine; Surgery
PROC: 0DB68ZX Excision of Stomach, Via Natural or Artificial Opening Endoscopic, Diagnostic (ICD-10-PCS; principal; 2016-08-23 14:11)
DX: K22.6 Gastro-esophageal laceration-hemorrhage syndrome (principal); I10 Essential (primary) hypertension; E87.6 Hypokalemia
CPT/HCPCS: J2405; J3490; P9016; Q9967

== ENCOUNTER → 2017-06-26 | Outpatient (CLI) | payer OTHER ==
[~2017-06-26] MED LIST changes: +TRAMADOL 50MG T50 M1 PO
== END ==
LOC: LAB 14:27
DX: Z01.419 Encounter for gynecological examination (general) (routine) without abnormal findings (principal)

== ENCOUNTER → 2017-07-28 | Outpatient (CLI) | payer OTHER ==
[2017-07-28 15:00] LABS: LYMPH # 2.6 K/mm3 (0.7-4.5); LYMPH % 39.4 % (10-50.0)
[2017-07-28 15:07] LABS: HEMOGLOBIN 11.6 g/dL (12.2-16.2)
[2017-07-28 17:04] LABS: BUN 15 mg/dL (7-18)
[2017-07-28 17:05] LABS: GFR (ESTIMATED) 139 ML/MIN (59-)
== END ==
LOC: LAB 14:37
PROVIDERS: Dermatology
DX: L40.0 Psoriasis vulgaris (principal); Z79.899 Other long term (current) drug therapy